=== PATIENT | female | born 1985 | race Caucasian/White ===

== ENCOUNTER 2017-06-03 21:27 | Emergency (ER) | payer BC ==
[~2017-06-03] VITALS: Ht 157.5 cm; Wt 65.8 kg
--- NOTE | 2017-06-03 21:40 | NUR ---
BB ; "FELT MY HEART RACING ALL DAY" PATIENT IS A/OX4. BREATHING EVEN AND UNLABORED. NO SOB. DENIES CHEST PAIN. VITALS STABLE. SAFETY AND COMFORT MEASURES IN PLACE. AWAITING MD ORDERS.
--- NOTE | 2017-06-03 21:50 | NUR ---
NEW IV STARTED ON LAC, 20 G. BLOOD DRAWN AND SENT TO LAB.
[2017-06-03] MEDS ORDERED: LORAZEPAM INJ 2 MG/ML VIAL ONE (21:52)
[2017-06-03] MEDS ORDERED: ACETAMINOPHEN ES 500 MG TABLET ONE (21:52)
[2017-06-03] MEDS ORDERED: ONDANSETRON HCL/PF 4 MG/2 ML VIAL ONE (21:52)
[2017-06-03] MEDS ORDERED: ONDANSETRON HCL/PF 4 MG/2 ML VIAL IVP ONE (22:00)
[2017-06-03] MEDS ORDERED: IV NS 0.9% 1,000 ML BAG IV ONE ×2 (22:00→23:00)
[2017-06-03] MEDS ORDERED: ACETAMINOPHEN ES 500 MG TABLET PO ONE (22:00)
[2017-06-03] MEDS ORDERED: LORAZEPAM INJ 2 MG/ML VIAL IV ONE (22:00)
--- NOTE | 2017-06-03 22:05 | NUR ---
[employer] AT BEDSIDE.
[2017-06-03 22:19] LABS: CALCIUM, SERUM 9.4 mg/dL (8.5-10.1); CARBON DIOXIDE 27 mmol/L (21-32); CHLORIDE 102 mmol/L (98-107); CREATININE 0.8 mg/dL (0.6-1.3); GLUCOSE 107 mg/dL (74-106); POTASSIUM 2.9 mmol/L (3.5-5.1); SODIUM SERUM 142 mmol/L (136-145); UREA NITROGEN, BLOOD 18 mg/dL (7-18)
[2017-06-03 22:25] LABS: BASOPHILS # (AUTO) 0.1 /CMM (0.0-0.2); BASOPHILS % (AUTO) 0.5 % (0.0-2.0); EOSINOPHILS # (AUTO) 0.3 /CMM (0.0-0.7); EOSINOPHILS % (AUTO) 2.6 % (0.0-6.0); HEMATOCRIT 38 % (33-45); LYMPHOCYTES # (AUTO) 4.6 /CMM (0.8-4.8); LYMPHOCYTES % (AUTO) 40.4 % (20.0-44.0); MEAN CORPUSCULAR HEMOGLOBIN 32 PG (26.0-33.0); MEAN CORPUSCULAR HGB CONC 34 g/dl (31.0-36.0); MEAN CORPUSCULAR VOLUME 93 fL (82-100); MONOCYTES # (AUTO) 0.8 /CMM (0.1-1.30); MONOCYTES % (AUTO) 6.9 % (2.0-12.0); NEUTROPHILS # (AUTO) 5.7 /CMM (1.8-8.9); NEUTROPHILS % (AUTO) 49.6 % (43.0-81.0); PLATELET COUNT (AUTO) 293 /CMM (150-450); RDW COEFFICIENT OF VARIATION 12.1 (11.5-15.0); RED BLOOD CELL COUNT(AUTO) 4.09 MIL/uL (4.0-5.2); WHITE BLOOD COUNT (AUTO) 11.5 K/uL (4.3-11.0)
[2017-06-03 22:27] LABS: TROPONIN I < 0.017 ng/mL (0.00-0.056)
[2017-06-03] MEDS ORDERED: POTASSIUM CHLORIDE 20 MEQ TAB.PRT.SR PO ONE ×2 (22:30→22:32)
[2017-06-03 22:36] LABS: INR 0.92 (0.87-1.13); PROTHROMBIN TIME 9.6 SECS (9.5-12.7)
--- NOTE | 2017-06-03 23:19 | NUR ---
[employer]IL WINDER AT BEDSIDE FOR REPEAT BLOOD DRAW.
[2017-06-03 23:25] LABS: APPEARANCE,URINE CLEAR (CLEAR); BILIRUBIN,URINE NEGATIVE (NEGATIVE); BLOOD, URINE 3+ Ery/uL (NEGATIVE); COLOR,URINE YELLOW (YELLOW); KETONES,URINE NEGATIVE (NEGATIVE); LEUKOCYTE ESTERASE ,URINE NEGATIVE (NEGATIVE); NITRITE, URINE NEGATIVE (NEGATIVE); PROTEIN,URINE NEGATIVE (NEGATIVE); UGLUCOSE NEGATIVE (NEGATIVE); UROBILINOGEN,URINE 0.2 EU/dL (0.2)
[2017-06-03 23:33] LABS: BACTERIA,URINE 2+ /HPF (None Seen); SQUAMOUS EPITHELIAL CELL,UR Moderate /HPF (None Seen); WBC,URINE 0-2 /HPF (0-3)
[2017-06-04 00:13] LABS: BILIRUBIN,DIRECT 0.1 mg/dL (0.0-0.2); BILIRUBIN,TOTAL 0.3 mg/dL (0.2-1.0)
[2017-06-04 00:23] LABS: D-DIMER 0.42 mg/L(FEU (0.17-0.50)
--- NOTE | 2017-06-04 00:41 | NUR ---
Patient discharged to home in stable condition. Written and verbal after care instructions given. Patient verbalizes understanding of instruction.IV removed. Catheter intact and site benign. Pressure and 4x4 applied to site. No bleeding noted.
[2017-06-04 00:42] VITALS: BP 124/76
== END 2017-06-04 00:43 | disposition home or self-care (01) ==
LOC: ER 21:30
DX: R07.9 Chest pain, unspecified (principal); E87.6 Hypokalemia; R09.1 Pleurisy; E03.9 Hypothyroidism, unspecified; R82.99 Other abnormal findings in urine
CPT/HCPCS: 36415; 71010; 80048; 81001; 82247; 82248; 83605 ×2; 84443; 84484; 84703; 85025; 85378; 85730; 87040 ×2; 87086; 93005; 96361; 96374; 96375; 99285; A4606; J2060; J2405; J7030 ×2; Z7610; 81000-TC